=== PATIENT | male | born 1985 | race Two or more races ===

== ENCOUNTER 2019-12-15 16:11 | Emergency (ER) | payer SELFPAY ==
[~2019-12-15] VITALS: Ht 182.9 cm; Wt 80.0 kg
--- NOTE | 2019-12-15 17:35 | NUR ---
PIV placed with us.
--- NOTE | 2019-12-15 18:40 | NUR ---
THIS IS A 34 YO M BIB [employer] AFTER REPORTEDLY INGESTING 1/2 GRAM OF HEROIN. PT HAS HX OF IV HEROIN USE. VS STABLE. NADN. PT RESTING ON GURNEY W/ CALL LIGHT IN REACH. PT UPDATED ON POC TO OBSERVE FOR 6 HOURS. NO LONGER IN [employer] CUSTODY. WILL CONTINUE TO MONITOR.
[2019-12-15 18:44] VITALS: BP 116/77
--- NOTE | 2019-12-15 19:07 | NUR ---
PATIENT ELOPED PRIOR TO GIVING DC INSTRUCTIONS. PIV REMOVED.
== END 2019-12-15 19:08 | disposition home or self-care (01) ==
LOC: ED 19:02
DX: T40.1X1A Poisoning by heroin, accidental (unintentional), initial encounter (principal); Y92.89 Other specified places as the place of occurrence of the external cause
CPT/HCPCS: 99283